=== PATIENT | female | born 1965 | race Caucasian/White ===

== ENCOUNTER 2016-11-26 14:24 | Emergency (ER) | payer OTHER ==
[~2016-11-26] VITALS: Ht 160 cm; Wt 77.3 kg
[2016-11-26] MEDS ORDERED: ALPR0.255 PO (14:43)
[2016-11-26] MEDS ORDERED: METH10 PO (14:43)
[2016-11-26] MEDS ORDERED: IBUPROFEN 800 MG TABLET PO ONE (14:45)
[2016-11-26] MEDS ORDERED: METHADONE HCL 10 MG TABLET PO ONE (16:15)
[2016-11-26 16:52] VITALS: BP 136/88
== END 2016-11-26 17:13 | disposition home or self-care (01) ==
LOC: EMS 14:25
DX: S82.51XG Displaced fracture of medial malleolus of right tibia, subsequent encounter for closed fracture with delayed healing (principal); F11.20 Opioid dependence, uncomplicated; F17.210 Nicotine dependence, cigarettes, uncomplicated; F13.90 Sedative, hypnotic, or anxiolytic use, unspecified, uncomplicated; I10 Essential (primary) hypertension; X58.XXXD Exposure to other specified factors, subsequent encounter
CPT/HCPCS: 29515; 99284

== ENCOUNTER 2017-08-06 17:04 | Emergency (ER) | payer OTHER ==
[~2017-08-06] VITALS: Ht 177.8 cm; Wt 75.0 kg
[~2017-08-06 17:04] MED LIST: ALPR0.255 PO; METH10 PO
[2017-08-06 17:34] VITALS: BP 130/82
[2017-08-06] MEDS ORDERED: PROZ10 PO (18:22)
== END 2017-08-06 19:07 | disposition left against medical advice (07) ==
LOC: EMS 17:05
DX: F19.10 Other psychoactive substance abuse, uncomplicated (principal); M25.571 Pain in right ankle and joints of right foot; G89.29 Other chronic pain; I10 Essential (primary) hypertension; F17.210 Nicotine dependence, cigarettes, uncomplicated; F13.90 Sedative, hypnotic, or anxiolytic use, unspecified, uncomplicated
CPT/HCPCS: 99283